=== PATIENT | female | born 1970 | race Caucasian/White ===

== ENCOUNTER → 2017-08-31 | Outpatient (CLI) | payer BC ==
[~2017-08-31] MED LIST: GADOBUTROL 10 MMOL/10 ML VIAL IV
== END | disposition home or self-care (01) ==
LOC: KCIC MRI 14:30
DX: C71.9 Malignant neoplasm of brain, unspecified (principal); H53.2 Diplopia; R51 Headache
CPT/HCPCS: 70553

== ENCOUNTER → 2017-09-02 | Outpatient (CLI) | payer BC ==
[2017-09-02 14:54] LABS: INR 1.1 (0.8-1.1); PARTIAL THROMBOPLASTIN TIME 24 SEC (24-38); PROTHROMBIN TIME PATIENT 13.1 SEC (11.7-14.0)
[2017-09-03 06:14] LABS: MRSA BY PCR Negative (Negative)
== END | disposition home or self-care (01) ==
LOC: SURGPAT 12:31
DX: Z01.818 Encounter for other preprocedural examination (principal); G93.9 Disorder of brain, unspecified
CPT/HCPCS: 36415; 85610; 85730; 87641

== ENCOUNTER 2017-10-17 07:51 | Emergency (ER) | payer BC ==
[2017-10-17 09:21] LABS: ADD MAN DIFF? NO
[2017-10-17 09:27] LABS: BASO % 1 % (0-3); EOS # 0.1 x10^3/uL (0.0-0.7); EOS % 1 % (0-3); HEMATOCRIT 36.4 % (36.0-47.0); HEMOGLOBIN 12.4 g/dL (12.0-15.5); LYMPH # 1.9 x10^3/uL (1.0-4.8); LYMPH % 32 % (24-48); MEAN CORPUSCULAR HEMOGLOBIN 32 pg (25-35); MEAN CORPUSCULAR HGB CONC 34 g/dL (31-37); MEAN CORPUSCULAR VOLUME 94 fL (79-100); MONO # 0.3 x10^3/uL (0.0-1.1); MONO % 5 % (0-9); NEUT # 3.6 x10^3uL (1.8-7.7); NEUT % 61 % (31-73); PLATELET COUNT 204 x10^3/uL (140-400); RED BLOOD COUNT 3.87 x10^6/uL (3.50-5.40); RED CELL DISTRIBUTION WIDTH 14.8 % (11.5-14.5); WHITE BLOOD COUNT 5.9 x10^3/uL (4.0-11.0)
[2017-10-17 09:37] LABS: ANION GAP 9 (6-14); BLOOD UREA NITROGEN 13 mg/dL (7-20); BUN/CREATININE RATIO 19 (6-20); CALCIUM 8.9 mg/dL (8.5-10.1); CARBON DIOXIDE 30 mmol/L (21-32); CHLORIDE 101 mmol/L (98-107); CREATININE 0.7 mg/dL (0.6-1.0); GFR 90.1; GLUCOSE 91 mg/dL (70-99); POTASSIUM 3.6 mmol/L (3.5-5.1); SODIUM 140 mmol/L (136-145)
[2017-10-17 09:44] LABS: ALBUMIN 2.8 g/dL (3.4-5.0); ALBUMIN/GLOBULIN RATIO 0.9 (1.0-1.7); ALK PHOS 74 U/L (46-116); ALT (SGPT) 65 U/L (14-59); AST (SGOT) 22 U/L (15-37); TOTAL BILIRUBIN 0.4 mg/dL (0.2-1.0); TOTAL PROTEIN 5.8 g/dL (6.4-8.2)
[2017-10-17 11:12] LABS: FERRITIN 109 ng/mL (8-252)
== END 2017-10-17 10:58 | disposition home or self-care (01) ==
LOC: ER 07:51
DX: R25.2 Cramp and spasm (principal); Z88.0 Allergy status to penicillin; Z88.6 Allergy status to analgesic agent
CPT/HCPCS: 36415; 80053; 82728; 85025; 93970; 99285-25

== ENCOUNTER → 2017-12-07 | Outpatient (CLI) | payer BC ==
[2017-12-07] MEDS: GADOBUTROL 10 MMOL/10 ML VIAL IV (10:54)
== END | disposition home or self-care (01) ==
LOC: KCIC MRI 08:38
DX: C71.9 Malignant neoplasm of brain, unspecified (principal); R51 Headache
CPT/HCPCS: 70553; A9585

== ENCOUNTER → 2018-02-23 | Outpatient (CLI) | payer BC ==
[~2018-02-23] MED LIST changes: +CONTRAST GIVEN. MC; -GADOBUTROL 10 MMOL/10 ML VIAL IV
[2018-02-23] MEDS: IOHEXOL 300 MG/ML 100ML VIAL. IV (10:01)
== END | disposition home or self-care (01) ==
LOC: CT 09:37
DX: R91.8 Other nonspecific abnormal finding of lung field (principal); I10 Essential (primary) hypertension; E87.6 Hypokalemia; R73.9 Hyperglycemia, unspecified
CPT/HCPCS: 71275; Q9967